=== PATIENT | male | born 1990 ===

== ENCOUNTER → 2024-06-07 | Outpatient (REF) | payer BC ==
[2024-06-07 18:42] LABS: RSV AMPLIFICATION NEGATIVE (NEGATIVE)
== END ==
LOC: M LAB REF 17:18
PROVIDERS: ATTEND Nurse Practitioner Family
DX: J06.9 Acute upper respiratory infection, unspecified (principal); Z20.828 Contact with and (suspected) exposure to other viral communicable diseases